=== PATIENT | male | born 1970 | race Caucasian/White ===

== ENCOUNTER 2022-12-04 21:36 | Emergency (ER) | payer OTHER ==
[~2022-12-04] VITALS: Ht 162.6 cm; Wt 104.3 kg
[2022-12-04 21:40] VITALS: BP 155/96; PULSE 98; RESP 17; TEMP 98.3; O2SAT 96
[2022-12-04 22:41] LABS: BASOPHILS % (AUTO) 0.3 % (0.0-2.0); EOSINOPHILS # (AUTO) 0.1 K/uL (0-0.4); EOSINOPHILS % (AUTO) 0.9 % (0.0-4.0); HEMATOCRIT 43.1 % (36-52); HEMOGLOBIN 14.5 g/dL (12.0-18.0); LYMPHOCYTES # (AUTO) 2.4 K/uL (2.0-11.5); LYMPHOCYTES % (AUTO) 17.5 % (20.5-51.1); MEAN CORPUSCULAR HEMOGLOBIN 30 pg (27-31); MEAN CORPUSCULAR HGB CONC 34 g/dL (33-37); MEAN CORPUSCULAR VOLUME 89.4 fL (80-94); MONOCYTES # (AUTO) 1.1 K/uL (0.8-1.0); MONOCYTES % (AUTO) 7.7 % (1.7-9.3); NEUTROPHILS # (AUTO) 10.2 K/uL (1.8-7.7); NEUTROPHILS % (AUTO) 73.6 % (42.2-75.2); PLATELET COUNT (AUTO) 291 K/uL (140-450); RED BLOOD CELL COUNT(AUTO) 4.82 MIL/uL (4.20-6.10); RED CELL DISTRIBUTION WIDTH 13.1 % (11.6-13.7); WHITE BLOOD COUNT (AUTO) 13.8 K/uL (4.8-10.8)
[2022-12-04 22:57] LABS: ANION GAP 12.1 (8-16); CALCIUM 9.5 mg/dL (8.5-10.1); CARBON DIOXIDE 28.2 mmol/L (21-32); POTASSIUM 4.3 mmol/L (3.5-5.1)
[2022-12-05] MEDS ORDERED: SULFAMETH/TRIMETH DS 800/160MG 1 TAB PO ONE (02:35)
[2022-12-05] MEDS ORDERED: LIDOCAINE MPF 1% 5 ML ONE (02:54)
[2022-12-05] MEDS ORDERED: LIDOCAINE 1% 500 MG/ 50 ML VIAL INJ ONE (02:55)
[2022-12-05] MEDS ORDERED: IBUPROFEN 800 MG TAB PO ONE (03:10)
[2022-12-05] MEDS ORDERED: IBUP-2213 PO (03:25)
[2022-12-05] MEDS ORDERED: SULF-59 PO (03:25)
== END 2022-12-05 03:52 | disposition home or self-care (01) ==
LOC: MED 21:36
DX: L02.415 Cutaneous abscess of right lower limb (principal); L03.115 Cellulitis of right lower limb; Z79.899 Other long term (current) drug therapy
CPT/HCPCS: 10060; 36415; 80048; 85025; 99284; J2001

== ENCOUNTER 2023-05-07 07:26 | Emergency (ER) | payer OTHER ==
[~2023-05-07] VITALS: Ht 167.6 cm; Wt 104.3 kg
[~2023-05-07 07:26] MED LIST: IBUP-2213 PO; SULF-59 PO
[2023-05-07 07:42] VITALS: BP 139/93; PULSE 75; RESP 18; TEMP 97.6; O2SAT 99
[2023-05-07] MEDS ORDERED: KETOROLAC 60 MG/2 ML VIAL IM ONE (07:57)
[2023-05-07] MEDS: KETOROLAC 60 MG/2 ML VIAL IM ONE (07:58)
[2023-05-07] MEDS ORDERED: ACET-503 PO (08:01)
[2023-05-07] MEDS ORDERED: IBUP-2213 PO (08:02)
== END 2023-05-07 08:11 | disposition home or self-care (01) ==
LOC: MED 07:26
DX: L02.612 Cutaneous abscess of left foot (principal); L03.116 Cellulitis of left lower limb; Z79.899 Other long term (current) drug therapy
CPT/HCPCS: 96372; 99283; J1885

== ENCOUNTER 2023-08-27 18:28 | Emergency (ER) | payer OTHER ==
[~2023-08-27] VITALS: Ht 162.6 cm; Wt 99.8 kg
[~2023-08-27 18:28] MED LIST changes: +ACET-503 PO
[2023-08-27 18:47] VITALS: BP 120/93; PULSE 75; RESP 16; TEMP 97.1; O2SAT 97
[2023-08-27] MEDS ORDERED: SULF-59 PO (19:54)
[2023-08-27 20:04] VITALS: BP 120/93; PULSE 75; RESP 16; TEMP 97.1; O2SAT 97
== END 2023-08-27 20:04 | disposition home or self-care (01) ==
LOC: MED 18:28
DX: L02.31 Cutaneous abscess of buttock (principal); R03.0 Elevated blood-pressure reading, without diagnosis of hypertension; Z79.1 Long term (current) use of non-steroidal anti-inflammatories (NSAID); Z79.899 Other long term (current) drug therapy
CPT/HCPCS: 99284